=== PATIENT | male | born 1960 | race Caucasian/White ===

== ENCOUNTER 2016-05-21 20:17 | Emergency (ER) | payer MEDICAID ==
[2014-10-12 07:19] VITALS: BMI 35.9
[~2016-05-21 20:17] MED LIST: ACTEMRA INJ; AMBIEN10 MG PO; BACTRIM DS TABL1 TAB PO; BAYER CHEWABLE81 MG PO; DESERYL100 MG PO; DULERA 100 MCG8.8 GM INH; FISH OIL 1,0001 CA1 PO; FLORINEF 0.1 M0.1 MG PO; FOLIC ACID1 MG PO; HYDROCODONE-APA1 TAB PO; KLONOPIN1 MG PO; LASIX40 MG PO; MYSOLINE 50 MG50 MG PO; NEURONTIN 300300 MG PO; PEPCID40 MG PO; PERCOCET 10/3251 TA1 PO; PREDNISONE5 MG PO; SOMA350 MG PO; TREXALL5 MG PO; TRICOR145 MG PO; ZOCOR20 MG PO; ZOLOFT100 MG PO
== END 2016-05-21 22:36 | disposition home or self-care (01) ==
LOC: D.ER 20:17
DX: M54.5 Low back pain (principal); S39.012A Strain of muscle, fascia and tendon of lower back, initial encounter; X58.XXXA Exposure to other specified factors, initial encounter; Y93.89 Activity, other specified; Y92.89 Other specified places as the place of occurrence of the external cause; M62.830 Muscle spasm of back; J45.909 Unspecified asthma, uncomplicated

== ENCOUNTER 2016-06-12 13:14 | Emergency (ER) | payer MEDICAID ==
[2014-10-12 07:19] VITALS: BMI 35.9
[2016-06-12 13:44] LABS: BASOPHILS 0.2 % (0.0-2.0); EOSINOPHILS 1.9 % (0-7); HEMATOCRIT 38.6 % (42.0-54.0); HEMOGLOBIN 12.3 g/dL (13.5-17.5); IMMATURE GRANULOCYTES 0.3 % (0-5); LYMPHOCYTES 14.5 % (15-50); MCH 30.4 pg (26.0-34.0); MCHC 31.9 g/dL (31.0-37.0); MCV 95.3 fL (80.0-100.0); MONOCYTES 10.5 % (2-11); NEUTROPHILS 72.6 % (40-80); PLATELET COUNT 202 10x3/uL (130-400); RBC 4.05 10x6/uL (4.20-6.10); RDW 14.6 % (11.5-14.5); WBC 5.7 10x3/uL (4.8-10.8)
[2016-06-12 13:59] LABS: ALBUMIN 3.3 g/dL (3.4-5.0); ANION GAP 13.5 mmol/L (8-16); BILIRUBIN - TOTAL 0.26 mg/dL (0.2-1.3); CALCIUM 7.8 mg/dL (8.5-10.1); CARBON DIOXIDE 24.6 mmol/L (21.0-32.0); CREATININE - SERUM 1.3 mg/dL (0.6-1.3); POTASSIUM - SERUM 4.1 mmol/L (3.5-5.1)
== END 2016-06-12 15:20 | disposition home or self-care (01) ==
LOC: D.ER 13:14
PROVIDERS: Emergency Medicine
DX: J11.1 Influenza due to unidentified influenza virus with other respiratory manifestations (principal)

== ENCOUNTER 2017-04-16 10:30 | Emergency (ER) | payer MEDICAID ==
[2014-10-12 07:19] VITALS: BMI 35.9
== END 2017-04-16 12:17 | disposition home or self-care (01) ==
LOC: D.ER 10:30
DX: M54.5 Low back pain (principal)

== ENCOUNTER 2017-07-15 07:58 | Inpatient (IN) | payer MEDICAID ==
[2017-07-15] VITALS (16 sets, daily range): BP systolic 121–158; BP diastolic 63–89; BMI 40.1
[~2017-07-15] VITALS: Ht 177.8 cm; Wt 126.6 kg
[2017-07-15 08:16] LABS: BASOPHILS 0.4 % (0-2); HEMATOCRIT 25.4 % (42.0-54.0); HEMOGLOBIN 8.1 g/dL (13.5-17.5); IMMATURE GRANULOCYTES 1.3 % (0-5); MCH 31.2 pg (26.0-34.0); MCHC 31.9 g/dL (31.0-37.0); MCV 97.7 fL (80.0-100.0); MEAN PLATELET VOLUME 8.3 fL (7.4-10.4); MONOCYTES 7.9 % (2-11); NEUTROPHILS 58.4 % (40-80); RDW 14.5 % (11.5-14.5); WBC 7.6 10x3/uL (4.8-10.8)
[2017-07-15 08:17] LABS: PLATELET COUNT 319 10x3/uL (130-400)
[2017-07-15 08:26] LABS: ALBUMIN 3.1 g/dL (3.4-5.0); ALKALINE PHOSPHATASE 58 U/L (46-116); ALT (SGPT) 25 U/L (10-68); BILIRUBIN - TOTAL 0.15 mg/dL (0.2-1.3); CALC OSMOLALITY 289 mosm/kg (275-300); CALCIUM 8.2 mg/dL (8.5-10.1); CARBON DIOXIDE 23.8 mmol/L (21.0-32.0); CHLORIDE - SERUM 103 mmol/L (98-107); CREATININE - SERUM 1.3 mg/dL (0.6-1.3); GLUCOSE 127 mg/dL (74-106); POTASSIUM - SERUM 3.2 mmol/L (3.5-5.1); PROTEIN - SERUM 6.3 g/dL (6.4-8.2); SODIUM 141 mmol/L (136-145); UREA NITROGEN 32 mg/dL (7-18); eGFR NON AFRICAN AMERICAN 60 mL/min (90-120)
[2017-07-15 08:37] LABS: CKMB 0.5 U/L (0.0-3.6); CREATINE KINASE 58 UL (21-232); PRO BNP 68 pg/mL (0-125)
[2017-07-15 08:41] LABS: TROPONIN-I < 0.017 ng/mL (0.000-0.060)
[2017-07-15 10:09] LABS: HEMATOCRIT 23.1 % (42.0-54.0)
[2017-07-15 10:10] LABS: HEMOGLOBIN 7.5 g/dL (13.5-17.5)
[2017-07-15 10:21] LABS: % SATURATION 18 % (15-55); IRON 76 ug/dl (35-150); TOTAL IRON BIND CAPACITY 403 ug/dl (260-445); UNSAT IRON BIND CAPACITY 327 ug/dl (150-375)
[2017-07-15] MEDS ORDERED: ALEVE220 MG (12:39)
[2017-07-15] MEDS ORDERED: STERAPRED 5MG 65 M1 PO (12:42)
[2017-07-15 18:46] LABS: HEMATOCRIT 25.7 % (42.0-54.0); HEMOGLOBIN 8.3 g/dL (13.5-17.5)
[2017-07-16] VITALS (20 sets, daily range): BP systolic 130–185; BP diastolic 71–103
[2017-07-16 02:49] LABS: BASOPHILS 0.2 % (0-2); EOSINOPHILS 0.7 % (0-7); HEMATOCRIT 24.9 % (42.0-54.0); HEMOGLOBIN 7.9 g/dL (13.5-17.5); IMMATURE GRANULOCYTES 0.5 % (0-5); LYMPHOCYTES 25.4 % (15-50); MCHC 31.7 g/dL (31.0-37.0); MCV 97.6 fL (80.0-100.0); MEAN PLATELET VOLUME 8.1 fL (7.4-10.4); NEUTROPHILS 66.2 % (40-80); PLATELET COUNT 204 10x3/uL (130-400); RBC 2.55 10x6/uL (4.20-6.10); RDW 14.7 % (11.5-14.5); WBC 5.8 10x3/uL (4.8-10.8)
[2017-07-16 02:57] LABS: ANION GAP 12.1 mmol/L (8-16); CALCIUM 7.6 mg/dL (8.5-10.1); CARBON DIOXIDE 27.7 mmol/L (21.0-32.0); CREATININE - SERUM 1.1 mg/dL (0.6-1.3)
[2017-07-16 02:59] LABS: POTASSIUM - SERUM 3.8 mmol/L (3.5-5.1)
[2017-07-16 10:09] LABS: HEMATOCRIT 24.9 % (42.0-54.0)
[2017-07-16 18:18] LABS: HEMATOCRIT 29.8 % (42.0-54.0); HEMOGLOBIN 9.8 g/dL (13.5-17.5)
[2017-07-17 03:53] VITALS: BP 134/70
[2017-07-17 06:05] LABS: BASOPHILS 0.2 % (0-2); EOSINOPHILS 0.2 % (0-7); HEMATOCRIT 27.8 % (42.0-54.0); IMMATURE GRANULOCYTES 0.6 % (0-5); LYMPHOCYTES 10.3 % (15-50); MCH 30.7 pg (26.0-34.0); MCHC 32.4 g/dL (31.0-37.0); MEAN PLATELET VOLUME 8.2 fL (7.4-10.4); NEUTROPHILS 84.7 % (40-80); RBC 2.93 10x6/uL (4.20-6.10); RDW 17.2 % (11.5-14.5); WBC 6.3 10x3/uL (4.8-10.8)
[2017-07-17 06:08] LABS: MCV 94.9 fL (80.0-100.0)
[2017-07-17 06:09] LABS: PLATELET COUNT 259 10x3/uL (130-400)
[2017-07-17 06:29] LABS: CALC OSMOLALITY 283 mosm/kg (275-300); CALCIUM 8.4 mg/dL (8.5-10.1); CARBON DIOXIDE 25.5 mmol/L (21.0-32.0); CHLORIDE - SERUM 107 mmol/L (98-107); GLUCOSE 130 mg/dL (74-106); POTASSIUM - SERUM 3.8 mmol/L (3.5-5.1); SODIUM 142 mmol/L (136-145); eGFR NON AFRICAN AMERICAN 81 mL/min (90-120)
[2017-07-17 06:33] LABS: UREA NITROGEN 11 mg/dL (7-18)
[2017-07-17 08:23] VITALS: BP 133/76
[2017-07-17 10:33] VITALS: Ht 177.8 cm; Wt 126.6 kg
[2017-07-17 11:14] LABS: FOLATE (FOLIC ACID) - SERUM 11.2 ng/mL (>3.0)
[2017-07-17 12:09] VITALS: BP 106/68
[2017-07-17 16:46] LABS: APPEARANCE CLEAR (CLEAR); BILIRUBIN NEGATIVE (NEGATIVE); COLOR YELLOW (YELLOW); GLUCOSE NEGATIVE (NEGATIVE); KETONE NEGATIVE (NEGATIVE); NITRITE NEGATIVE (NEGATIVE); PROTEIN NEGATIVE (NEGATIVE); SPECIFIC GRAVITY 1.015 (1.005-1.020); UROBILINOGEN NORMAL (NORMAL)
[2017-07-17 16:49] VITALS: BP 116/61
[2017-07-17 20:20] VITALS: BP 129/72
[2017-07-18 01:02] VITALS: BP 134/64
[2017-07-18 04:22] VITALS: BP 142/85
[2017-07-18 07:16] LABS: BASOPHILS 0 % (0-2); EOSINOPHILS 0.1 % (0-7); HEMATOCRIT 29.1 % (42.0-54.0); HEMOGLOBIN 9.4 g/dL (13.5-17.5); IMMATURE GRANULOCYTES 0.6 % (0-5); LYMPHOCYTES 14.5 % (15-50); MCH 30.8 pg (26.0-34.0); MCHC 32.3 g/dL (31.0-37.0); MCV 95.4 fL (80.0-100.0); MEAN PLATELET VOLUME 8.2 fL (7.4-10.4); MONOCYTES 5.1 % (2-11); NEUTROPHILS 79.7 % (40-80); RBC 3.05 10x6/uL (4.20-6.10); RDW 16.9 % (11.5-14.5)
[2017-07-18 07:17] LABS: PLATELET COUNT 311 10x3/uL (130-400)
[2017-07-18 07:35] LABS: CALC OSMOLALITY 283 mosm/kg (275-300); CALCIUM 8.4 mg/dL (8.5-10.1); CARBON DIOXIDE 27.3 mmol/L (21.0-32.0); CHLORIDE - SERUM 104 mmol/L (98-107); GLUCOSE 114 mg/dL (74-106); POTASSIUM - SERUM 3.3 mmol/L (3.5-5.1); SODIUM 141 mmol/L (136-145); eGFR NON AFRICAN AMERICAN 81 mL/min (90-120)
[2017-07-18 07:37] LABS: UREA NITROGEN 17 mg/dL (7-18)
[2017-07-18] MEDS ORDERED: PROTONIX40 MG PO (08:19)
[2017-07-18] MEDS ORDERED: GENASYME40 MG/0.6 PO (08:20)
[2017-07-18] MEDS ORDERED: CARAFATE1 G/10 ML PO (08:20)
[2017-07-18 12:35] VITALS: BP 136/72
== END 2017-07-18 11:45 | disposition home or self-care (01) | DRG 378 ==
LOC: D.ER 07:58 → D.EDHOLD 09:33 → D.MS 09:33 → D.ICU 10:14 → D.MS 07-16 17:30
PROVIDERS: Emergency Medicine; Family Medicine; Internal Medicine Gastroenterology
PROC: 0DJ08ZZ Inspection of Upper Intestinal Tract, Via Natural or Artificial Opening Endoscopic (ICD-10-PCS; principal; 2017-07-15 14:20)
DX: K25.4 Chronic or unspecified gastric ulcer with hemorrhage (principal); Z68.41 Body mass index [BMI] 40.0-44.9, adult; K26.4 Chronic or unspecified duodenal ulcer with hemorrhage; D50.0 Iron deficiency anemia secondary to blood loss (chronic); K29.80 Duodenitis without bleeding; K20.9 Esophagitis, unspecified; R55 Syncope and collapse; M32.9 Systemic lupus erythematosus, unspecified; F32.9 Major depressive disorder, single episode, unspecified; F41.9 Anxiety disorder, unspecified; E66.9 Obesity, unspecified; I10 Essential (primary) hypertension; E78.5 Hyperlipidemia, unspecified

== ENCOUNTER → 2018-02-15 08:27 | Outpatient (CLI) | payer MEDICAID ==
[2017-07-17 10:33] VITALS: BMI 40.0
[~2018-02-15 08:27] MED LIST changes: +ALEVE220 MG; +CARAFATE1 G/10 ML PO; +GENASYME40 MG/0.6 PO; +PROTONIX40 MG PO; +STERAPRED 5MG 65 M1 PO
== END | disposition home or self-care (01) ==
LOC: D.RT 08:27
DX: R06.00 Dyspnea, unspecified (principal)

== ENCOUNTER → 2018-03-12 14:45 | Outpatient (CLI) | payer MEDICAID ==
[2017-07-17 10:33] VITALS: BMI 40.0
== END | disposition home or self-care (01) ==
LOC: D.CT 14:45
DX: J84.10 Pulmonary fibrosis, unspecified (principal)

== ENCOUNTER → 2018-09-06 12:28 | Outpatient (CLI) | payer MEDICAID ==
[2017-07-17 10:33] VITALS: BMI 40.0
== END | disposition home or self-care (01) ==
LOC: D.RAD 12:28
PROVIDERS: ATTEND Family Medicine
DX: R13.10 Dysphagia, unspecified (principal)

== ENCOUNTER 2018-11-19 16:39 | Inpatient (IN) | payer MEDICAID ==
[~2018-11-19] VITALS: Ht 180.3 cm; Wt 112.7 kg
[2019-02-11] MEDS ORDERED: METHOTREXATE IM (10:23)
[2019-02-11] MEDS ORDERED: BUSPAR 15 MG TA15 MG (10:28)
[2019-02-11] MEDS ORDERED: [UNRECOGNIZED DRUG - OTHER] IM (10:32)
[2019-02-11 10:42] LABS: CALC OSMOLALITY 282 mosm/kg (275-300); CALCIUM 8.7 mg/dL (8.5-10.1); CARBON DIOXIDE 29.4 mmol/L (21.0-32.0); CHLORIDE - SERUM 106 mmol/L (98-107); GLUCOSE 87 mg/dL (74-106); POTASSIUM - SERUM 3.4 mmol/L (3.5-5.1); SODIUM 142 mmol/L (136-145); UREA NITROGEN 14 mg/dL (7-18); eGFR NON AFRICAN AMERICAN 81 mL/min (90-120)
[2019-02-11 10:43] LABS: BASOPHILS 0.5 % (0-2); EOSINOPHILS 5.5 % (0-7); HEMATOCRIT 40.5 % (42.0-54.0); HEMOGLOBIN 13.1 g/dL (13.5-17.5); LYMPHOCYTES 35.4 % (15-50); MCH 30.7 pg (26.0-34.0); MCHC 32.3 g/dL (31.0-37.0); MCV 94.8 fL (80.0-100.0); MEAN PLATELET VOLUME 8.6 fL (7.4-10.4); MONOCYTES 10.2 % (2-11); NEUTROPHILS 48.4 % (40-80); PLATELET COUNT 295 10x3/uL (130-400); RBC 4.27 10x6/uL (4.20-6.10); WBC 5.7 10x3/uL (4.8-10.8)
[2019-02-11 10:44] LABS: APPEARANCE HAZY (CLEAR); BILIRUBIN NEGATIVE (NEGATIVE); COLOR YELLOW (YELLOW); GLUCOSE NEGATIVE (NEGATIVE); KETONE NEGATIVE (NEGATIVE); NITRITE NEGATIVE (NEGATIVE); PROTEIN NEGATIVE (NEGATIVE); SPECIFIC GRAVITY 1.015 (1.005-1.020); UROBILINOGEN NORMAL (NORMAL)
[2019-02-11 10:48] LABS: APTT 26.8 SECONDS (22.8-39.4); PROTIME 12.7 SECONDS (11.6-15.0)
[2019-02-12 06:48] VITALS: BMI 34.6
[2019-02-12 11:19] VITALS: BP 140/62
--- NOTE | 2019-02-12 11:23 | NUR ---
RECEIVED PATIENT FROM RECOVERY. ALERT AND ORIENTED. NO C/O PAIN. NO S/S OF ACUTE DISTRESS NOTED. ON 4L O2, NC O2SAT 96%. INCISION TO LEFT SHOULDER, DRESSING C/D/I. BILL DRAIN TO LEFT SHOULDER, BLOODY DRAINAGE. IV TO RIGHT FOREARM, SL. SITE PATENT WITHOUT REDNESS OR SWELLING. DENIES ANY NEEDS AT THIS TIME. CALL LIGHT IN REACH. WILL CONTINUE TO MONITOR.
--- NOTE | 2019-02-12 12:09 | NUR ---
PATIENT IN BED, TREMORS PRESENT. NOTIFIED RN ON FLOOR, GAVE PATIENT 25MG DEMEROL. TREMORS STILL PRESENT. NOTIFIED BJ WITH ANESTHESIA OF PATIENT STATUS CHANGE.
[2019-02-12 12:12] VITALS: BP 88/77; Ht 180.3 cm; Wt 112.7 kg
[2019-02-12 12:40] VITALS: BP 164/92
--- NOTE | 2019-02-12 12:40 | NUR ---
RAPID RESPONSE CALLED. PATIENT BP LOW 88/42, HAVING TREMORS, HR 110 AND DIAPHORETIC. PATIENT ABLE TO VERBALLY COMMUNICATE DURING. ABG DONE, WNL. INCREASES O2 TO 5L, NC. SPOUSE ENTERED ROOM AND EXPLAINED TO STAFF THAT PATIENT HAS TREMORS FREQUENTLY AT HOME, BUT DO NOT NORMALLY LAST THIS LONG. TREMORS LASTED FOR OVER 35 MINUTES. RECHECKED VITALS, WNL. PATIENT'S SPOUSE PRESSED DOWN ON RIGHT ARM FOR APPROXIMATELY 5 MINUTES, TREMORS SUBSIDED AND THEN DISAPATED. PATIENT STATED, "I FEEL MUCH BETTER NOW." DENIES ANY NEEDS AT THIS TIME. AT BEDSIDE. WILL CONTINUE TO MONITOR.
[2019-02-12] MEDS ORDERED: ROPINIROLE HCL1 MG PO (13:21)
--- NOTE | 2019-02-12 14:53 | OP ---
PATIENT NAME: SETH MORALES MEDICAL RECORD: [id number] :58 LOCATION:[id number] ADMISSION DATE:02/12/19 SURGEON: COLBY SERNA DO DATE OF OPERATION: 02/12/2019 PROCEDURE PERFORMED: Left reverse total shoulder arthroplasty. PREOPERATIVE DIAGNOSIS: Left shoulder rotator cuff tear arthropathy. POSTOPERATIVE DIAGNOSIS: Left shoulder rotator cuff tear arthropathy. INDICATIONS: Mr. Seth Morales is a 59-year-old male who presented to my office with shoulder pain that he has had it for quite some time. He was tired of loss of strength and dealing with the pain. We got an MRI, which showed a tear in the supra and infraspinatus as well as a greater than 50% fatty atrophy in the muscle bellies. He had a rotator cuff repair in the past. I informed him due to his rotator cuff muscle belly, there were few options, one would be a superior capsular repair, two would be a rotator cuff repair, which probably would not work due to the atrophy in the muscle bellies, and a third would be the reverse total shoulder, which would give him the most function afterwards most quickly. He was okay with that. He was aware of the risk including fracture, infection, bleeding, damage to nerves and vessels, need for further surgery, dislocation, need for revision surgery and even and he signed the consent. SURGEON: Colby Serna DO Assisted by Roger Antoine and Edwin Shukla. Roger and Edwin both assisted with retraction and closing the skin. This procedure could not have been performed without their help. DESCRIPTION OF PROCEDURE: The patient received a block by anesthesia in the preoperative area. He was given 1.5 grams of vancomycin preoperatively, taken to the operative suite, laid in the supine position, given general anesthetic and intubated. He was then sat in a beach chair position. The right shoulder was prepped and draped in sterile fashion. Timeout was performed and everyone was in agreement of the correct side, site, patient and procedure. We then proceeded by marking out the deltopec interval and a #10 blade was used to go through the skin and then a plasma blade was used to carefully dissect down to the interval between the pec and the deltoid. Had quite a large muscle mass and the proximal centimeter was taken off of the pec off the humerus for exposure. Then, the long head of the bicep tendon was tenodesed to that site and the long head of bicep was cut proximal to it. This was then followed up between the rotator cuff interval and the subscap was tagged and peeled off the lesser tuberosity exposing the humeral head. Any bleeding was coagulated with the Aquamantys throughout this procedure. He was given a gram of TXA prior to starting and at the end. The guide was then put into the humerus and the humerus was cut at 30 degrees retroversion. Once that was cut, the glenoid was exposed. A Quezada was used to free up any adhesions of the subscap and 2 retractions was used on anterior and posterior glenoid and then also a Hohmann was used on the superior surface to expose. The labrum was removed as well as a bicep tendon. The centering pin was used. This was then reamed over and drilled for the hole and then drilled for the 6.5 center screw. Once that was in place, it was measured to be 40 and the 25 baseplate was put on. I then reamed around that for the sphere. One it was cleared for the sphere, the OPERATIVE REPORT [id number] SETH MORALES GENE sphere was put on. The humerus was then exposed and the canal was entered and then we began broaching up to a 5, the 5 fit well and this was trialed with the #6 poly, had a good reduction, it was very tight, good tension on the deltoid as well as the conjoined tendon and had good motion without any subluxation or shucking with pulling on the humerus. This was then dislocated, was irrigated out and the actual implant was placed and reduced and again, it was in good position and shuck. The site was then irrigated with povidone iodine 10% with 500 mL of normal saline solution and sat for 3 minutes. Once that had been 3 minutes, the site was irrigated with greater than a liter of normal saline. We then put in the vancomycin and tobramycin powder as well as the Abimael. A drain was then put in and taken out superiorly and then the skin was closed. The interval was closed, approximated loosely with 0 Vicryl in simple fashion and the skin with 2-0 Vicryl in inverted interrupted fashion and 4-0 Monocryl ran on the skin and Prineo glue placed on the skin and then dressed with a Telfa and Tegaderm and the drain was secured with 2 Tegaderms. He was then awakened and taken to recovery in stable condition, placed in a sling. Blood loss was approximately 200 mL. COMPLICATIONS: None. TRANSINT:[id number] Voice Confirmation ID: [id number] DOCUMENT ID: [id number] COLBY SERNA DO at 1453 CC: [id number] DICTATION DATE: 02/12/19 1002 CHECKOUT SUPERVISOR: 02/12/19 1227 ADM IN [facility] [address] [place] [address]
[2019-02-12 16:38] VITALS: BP 163/81
--- NOTE | 2019-02-12 18:47 | NUR ---
ALERT AND ORIENTED, RESTING IN BED. NO C/O PAIN. NO S/S OF ACUTE DISTRESS NOTED. DENIES ANY NEEDS AT THIS TIME. CALL LIGHT IN REACH. WILL CONTINUE TO MONITOR.
--- NOTE | 2019-02-12 19:25 | NUR ---
IN BED WITH EYES CLOSED. ABLE TO VOICE ALL NEEDS. DENIES PAIN. SHOWS NO S/S OF DISTRESS. WILL NOTE ANY CHANGE.
[2019-02-12 19:30] VITALS: BP 144/66
[2019-02-13] VITALS (7 sets, daily range): BP systolic 126–193; BP diastolic 67–84
--- NOTE | 2019-02-13 06:50 | NUR ---
ALERT AND ORIENTED, RESTING IN BED EYES OPEN. NO C/O PAIN. NO S/S OF ACUTE DISTRESS NOTED. POD #1 LEFT SHOULDER, DRESSING C/D/I. BILL DRAIN TO SHOULDER, BLOODY DRAINAGE. ON 3L O2, NC. IV TO RIGHT HAND, 1/2 NS @ 50ML/HR. SITE PATENT WITHOUT REDNESS OR SWELLING. ON ELECTROLYE PROTOCOL, POTASSIUM 3.2 FOLLOWED REPLACEMENT PROTOCOL. DENIES ANY NEEDS AT THIS TIME. CALL LIGHT IN REACH. WILL CONTINUE TO MONITOR.
[2019-02-13 06:52] LABS: BASOPHILS 0.3 % (0-2); EOSINOPHILS 2.5 % (0-7); IMMATURE GRANULOCYTES 0.2 % (0-5); LYMPHOCYTES 27.5 % (15-50); MCH 30.7 pg (26.0-34.0); MCHC 32.1 g/dL (31.0-37.0); MCV 95.5 fL (80.0-100.0); MEAN PLATELET VOLUME 8.8 fL (7.4-10.4); MONOCYTES 9.2 % (2-11); NEUTROPHILS 60.3 % (40-80); PLATELET COUNT 257 10x3/uL (130-400); RDW 14.1 % (11.5-14.5); WBC 6.5 10x3/uL (4.8-10.8)
[2019-02-13 07:00] LABS: HEMATOCRIT 32.1 % (42.0-54.0); HEMOGLOBIN 10.3 g/dL (13.5-17.5); RBC 3.36 10x6/uL (4.20-6.10)
--- NOTE | 2019-02-13 07:23 | CN ---
PATIENT NAME:NILDA SANTOYO MEDICAL RECORD: [id number] : 58 LOCATION:[id number] ADMIT DATE: 02/12/19 ACCOUNT: [id number] CONSULTING PHYSICIAN: RAMONE DOWELL MD REFERRING PHYSICIAN: DANAE SERNA, DATE OF CONSULTATION: 02/12/2019 REASON FOR CONSULTATION: Medical management postoperative left shoulder repair. HISTORY OF PRESENT ILLNESS: The patient is a 59-year-old male, patient of Dr. Parham with history of rheumatoid arthritis. He has a torn left supraspinatus tendon which has been operated previously. He was admitted by Dr. Serna for a total shoulder replacement. The patient is now postoperative day 1 and has currently excellent anesthesia without pain. He denies any recent chest pain, PND, orthopnea. He received methotrexate on Sundays, he states. PAST MEDICAL HISTORY: History of asthma, fibromyalgia, hyperlipidemia, cervical disc disease, post-fusion, GERD, rheumatoid arthritis, history of seizure disorder, and SLE. PAST SURGICAL HISTORY: Recent left total shoulder, history of bilateral rotator cuff repairs and shoulders. ALLERGIES: None known. FAMILY HISTORY: Positive for diabetes, lung disease, cardiovascular disease, and sibling with cancer. SOCIAL HISTORY: He is . Never smoked. Does not use alcohol. MEDICATIONS: Flonase nasal spray daily, gabapentin 600 mg 2 tabs 3 times daily, primidone 50 mg 6 tabs daily, prednisone 5 mg daily, methotrexate 12.5 mg IM weekly, pantoprazole 40 mg daily, Carafate 1 gram p.o. q.6 hours, a.c., meals. Clonazepam 1 mg p.o. b.i.d. for anxiety, methocarbamol 500 mg 1-2 tabs every 6 hours for muscle spasm, trazodone 100 mg 2 tabs in the evening, Ambien 10 mg at bedtime, Bethany 10/325 one q.6 hours p.r.n. severe pain, Lasix 40 mg 2 tabs by mouth once daily, Zoloft 100 mg 2 tabs by mouth daily, and fenofibrate 145 mg p.o. daily. REVIEW OF SYSTEMS: CONSTITUTIONAL: Denies recent fatigue or fever. HEENT: No recent visual change, sinus congestion, or sore throat. RESPIRATORY: Mild short of breath on exertion. No recent chest pain or sputum production. GASTROINTESTINAL: No nausea, vomiting, change in stools or blood per rectum. GENITOURINARY: No dysuria. He has nocturia once nightly. MUSCULOSKELETAL: Chronic arthralgias and shoulders, neck and lumbar spine and knees. INTEGUMENTARY: No rash or itching. PSYCHIATRIC: Admits to depressed mood. PHYSICAL EXAMINATION: VITAL SIGNS: Pulse is 74, blood pressure is 140/62, sat 96% on room air, and temperature 97.5. GENERAL: Normocephalic. Eyes are clear, wearing glasses. CONSULT REPORT [id number] NILDA SANTOYO FUENTES NECK: No bruits or masses. He has limited range of motion to flexion of the C-spine. CHEST: Distant breath sounds without wheeze. HEART: Regular rate and rhythm. ABDOMEN: Morbidly obese, nontender. EXTREMITIES: He has scar of his right anterior shoulder. He has ice pack and a drain in the left shoulder postoperative. His left knee shows crepitus to flexion and extension. He has no significant peripheral edema. NEUROLOGICAL: Oriented to person, place, and time. Cranial nerves grossly intact. Gait was not tested. LABORATORY DATA: ABG shows pH of 7.35, CO2 of 45, pO2 of 63 on 40% Ventimask has been tapered. White count is 5700, H and H is 13 and 40 respectively. Potassium is low at 3.4 preoperative. Glucose is 87. ASSESSMENT: Postoperative day zero, left reverse total shoulder arthroplasty, rheumatoid arthritis, morbid obesity, depression, hyperlipidemia, history of gastric ulcers, and seizure disorder. PLAN: The patient's home medicines will be resumed. He is tolerating p.o. currently. We will follow with you. TRANSINT:[id number] Voice Confirmation ID: [id number] DOCUMENT ID: [id number] RAMONE DOWELL MD at 0723 CC: [id number] DICTATION DATE: 02/12/191721 CLIENT SOLUTIONS MANAGER: 02/13/19 0411 ADM IN [facility] [id number] [place] [address]
[2019-02-13 07:27] LABS: ANION GAP 12.3 mmol/L (8-16); CALCIUM 7.1 mg/dL (8.5-10.1); CARBON DIOXIDE 24.9 mmol/L (21.0-32.0); POTASSIUM - SERUM 3.2 mmol/L (3.5-5.1)
[2019-02-13 07:30] LABS: CREATININE - SERUM 1.7 mg/dL (0.6-1.3)
--- NOTE | 2019-02-13 17:38 | NUR ---
I have reviewed this patient and I concur with the Shift Assessment completed by the Licensed Practical Nurse today this shift.
--- NOTE | 2019-02-13 18:03 | NUR ---
I have reviewed this patient and I concur with the Shift Assessment completed by the Licensed Practical Nurse today this shift.
--- NOTE | 2019-02-13 19:51 | NUR ---
PATIENT RESTING IN BED AND DENIES NEEDS AT THIS TIME. BED IN LOWEST POSITION AND CALL LIGHT WITHIN REACH. ENCOURAGED THE PATIENT TO CALL IF HE HAS NEEDS. WILL CONTINUE TO MONITOR.
[2019-02-14] VITALS: BP 151/73
[2019-02-14 04:00] VITALS: BP 141/74
--- NOTE | 2019-02-14 06:55 | NUR ---
ALERT AND ORIENTED, RESTING IN BED WITH EYES OPEN. NO C/O PAIN. NO S/S OF ACUTE DISTRESS NOTED. POD #2 LEFT SHOULDER, DRESSING C/D/I. BILL DRAIN TO LEFT SHOULDER, BLOODY DRAINAGE. ON 3L O2, NC. SCDS ON. IN TO RIGHT HAND, 1/2 NS INFUSING @ 50ML/HR. SITE PATENT WITHOUT REDNESS OR SWELLING. DENIES ANY NEEDS AT THIS TIME. CALL LIGHT IN REACH. WILL CONTINUE TO MONITOR.
[2019-02-14 07:29] LABS: HEMATOCRIT 31.3 % (42.0-54.0); HEMOGLOBIN 9.9 g/dL (13.5-17.5); MCH 30.4 pg (26.0-34.0); MCHC 31.6 g/dL (31.0-37.0); MEAN PLATELET VOLUME 9.3 fL (7.4-10.4); RBC 3.26 10x6/uL (4.20-6.10); RDW 13.8 % (11.5-14.5); WBC 5.6 10x3/uL (4.8-10.8)
[2019-02-14] MEDS ORDERED: VISTARIL50 MG PO (07:54)
[2019-02-14] MEDS ORDERED: KEFLEX500 MG PO (07:54)
[2019-02-14] MEDS ORDERED: OXYCODONE HCL5 M1 PO (07:54)
[2019-02-14 08:00] VITALS: BP 134/56
[2019-02-14 08:16] LABS: CALCIUM 8.1 mg/dL (8.5-10.1); CARBON DIOXIDE 28.1 mmol/L (21.0-32.0); CHLORIDE - SERUM 105 mmol/L (98-107); POTASSIUM - SERUM 4.1 mmol/L (3.5-5.1); SODIUM 140 mmol/L (136-145); eGFR NON AFRICAN AMERICAN 81 mL/min (90-120)
[2019-02-14 08:18] LABS: CALC OSMOLALITY 280 mosm/kg (275-300); GLUCOSE 102 mg/dL (74-106); UREA NITROGEN 18 mg/dL (7-18)
--- NOTE | 2019-02-14 12:50 | NUR ---
DISCHARGED PATIENT HOME WITH FAMILY. DISCONTINUED IV, CATHETER TIP INTACT. WENT OVER DISCHARGE INSTRUCTIONS WITH PATIENT, VERBALIZED UNDERSTANDING. DENIES ANYTHING FURTHER.
== END 2019-02-14 12:51 | disposition home or self-care (01) | DRG 483 ==
LOC: D.SDCHOLD 02-12 05:47 → D.MS 02-12 05:47 → D.SDCHOLD 02-12 07:45 → D.MS 02-12 10:52 → D.SDCHOLD 02-12 13:53 → D.MS 02-12 13:53
PROVIDERS: Family Medicine; ADMIT Orthopaedic Surgery; ATTEND Orthopaedic Surgery
PROC: 0RRK00Z Replacement of Left Shoulder Joint with Reverse Ball and Socket Synthetic Substitute, Open Approach (ICD-10-PCS; principal; 2019-02-12 07:45)
DX: M75.122 Complete rotator cuff tear or rupture of left shoulder, not specified as traumatic (principal); M06.9 Rheumatoid arthritis, unspecified; E66.01 Morbid (severe) obesity due to excess calories; Z68.34 Body mass index [BMI] 34.0-34.9, adult; M32.9 Systemic lupus erythematosus, unspecified; I10 Essential (primary) hypertension; E78.5 Hyperlipidemia, unspecified; G40.909 Epilepsy, unspecified, not intractable, without status epilepticus; Z87.11 Personal history of peptic ulcer disease

== ENCOUNTER 2019-02-19 16:56 | Emergency (ER) | payer MEDICAID ==
[~2019-02-19] VITALS: Ht 180.3 cm; Wt 112.7 kg
[~2019-02-19 16:56] MED LIST changes: +BUSPAR 15 MG TA15 MG; +KEFLEX500 MG PO; +METHOTREXATE IM; +OXYCODONE HCL5 M1 PO; +ROPINIROLE HCL1 MG PO; +VISTARIL50 MG PO; +[UNRECOGNIZED DRUG - OTHER] IM
[2019-02-19 17:36] VITALS: Ht 180.3 cm; Wt 112.7 kg
[2019-02-19 20:03] VITALS: BP 148/73
== END 2019-02-19 20:03 | disposition home or self-care (01) ==
LOC: D.ER 16:56
DX: G89.18 Other acute postprocedural pain (principal); M25.512 Pain in left shoulder; Z98.890 Other specified postprocedural states; W01.0XXA Fall on same level from slipping, tripping and stumbling without subsequent striking against object, initial encounter; Y92.009 Unspecified place in unspecified non-institutional (private) residence as the place of occurrence of the external cause